=== PATIENT | male | born 1980 | race Caucasian/White ===

== ENCOUNTER 2019-03-03 11:29 | Emergency (ER) | payer BC, OTHER ==
[~2019-03-03] VITALS: Ht 172.7 cm; Wt 95.5 kg
[2019-03-03 11:57] VITALS: BP 126/88
[2019-03-03] MEDS ORDERED: HYDR-4383 PO (13:37)
[2019-03-03] MEDS ORDERED: CYCL-1 PO (13:37)
== END 2019-03-03 14:03 | disposition home or self-care (01) ==
LOC: ER 11:30
DX: M25.571 Pain in right ankle and joints of right foot (principal); M25.551 Pain in right hip; M54.2 Cervicalgia; R07.89 Other chest pain; Z98.890 Other specified postprocedural states; Z91.013 Allergy to seafood; Z79.899 Other long term (current) drug therapy; V87.7XXA Person injured in collision between other specified motor vehicles (traffic), initial encounter; Y93.89 Activity, other specified; Y92.89 Other specified places as the place of occurrence of the external cause; Y99.8 Other external cause status
CPT/HCPCS: 73610; 99283